=== PATIENT | male | born 1995 | race Caucasian/White ===

== ENCOUNTER 2021-06-08 23:21 | Emergency (ER) | payer BC ==
[~2021-06-08] VITALS: Ht 175.3 cm; Wt 70.3 kg
--- NOTE | 2021-06-08 23:23 | NUR ---
Patient to ER HALLWAY BED 1 to gown for evaluation. Side rails up.
--- NOTE | 2021-06-08 23:25 | NUR ---
ER MD ESCOBAR AT BEDSIDE EXAMINING PATIENT.
[2021-06-08] MEDS ORDERED: ONDANSETRON HCL 4 MG/2 ML VIAL IVP ONE (23:30)
[2021-06-08] MEDS ORDERED: LORazepam 2 MG/ML VIAL IVP ONE (23:30)
[2021-06-08] MEDS ORDERED: NACL 0.9% 1,000 ML IV ONE (23:30)
--- NOTE | 2021-06-08 23:30 | NUR ---
Pt BIB father due to palpitations and N&V s/p eating an edible "roughly" 3 hours prior to ED arrival. Pt denies any alcohol intake. Reports the edible was "too much" and felt sick so his father brought him in for eval. Pt appears in no acute distress. Breathing adequatly on RA. VSS at this time.
[2021-06-09 00:17] LABS: BASOPHILS % (AUTO) 0.3 % (0.0-2.0); EOSINOPHILS # (AUTO) 0.1 K/uL (0.0-0.4); HEMATOCRIT 42.2 % (36-54); HEMOGLOBIN 14.4 g/dL (14.0-18.0); LYMPHOCYTES # (AUTO) 4.4 K/uL (1.0-5.5); LYMPHOCYTES % (AUTO) 36.1 % (20.5-51.5); MEAN CORPUSCULAR HEMOGLOBIN 31 pg (27-31); MEAN CORPUSCULAR HGB CONC 34 % (32-36); MEAN CORPUSCULAR VOLUME 89 fL (79.0-98.0); MONOCYTES # (AUTO) 0.8 K/uL (0.0-1.0); MONOCYTES % (AUTO) 6.7 % (1.7-9.3); NEUTROPHILS # (AUTO) 6.8 K/uL (1.8-7.7); NEUTROPHILS % (AUTO) 55.9 % (40.0-70.0); PLATELET COUNT (AUTO) 216 K/uL (130-430); RED BLOOD CELL COUNT(AUTO) 4.72 MIL/uL (4.2-6.2); RED CELL DISTRIBUTION WIDTH 12.4 % (9.0-15.0); WHITE BLOOD COUNT (AUTO) 12.1 K/uL (4.8-10.8)
[2021-06-09 00:51] LABS: CALCIUM 8.7 mg/dL (8.4-11.0); CREATININE 0.97 mg/dL (0.55-1.30); POTASSIUM 3.4 mmol/L (3.5-5.1)
[2021-06-09 00:57] LABS: ALBUMIN 4.1 g/dL (3.4-4.8); TOTAL BILIRUBIN 0.3 mg/dL (0.0-1.0)
--- NOTE | 2021-06-09 01:09 | NUR ---
UA collected and sent to lab
[2021-06-09 01:13] LABS: ACETAMINOPHEN < 1 ug/mL (1-30); ALCOHOL, BLOOD < 3 mg/dL (<10)
[2021-06-09 01:29] LABS: BARBITURATE, URINE NEGATIVE (NEG <=200); BENZODIAZEPINE, URINE NEGATIVE (NEG <=150); CANNABINOID, URINE POSITIVE (NEG <=50); COCAINE, URINE NEGATIVE (NEG <=150); METHAMPHETAMINES SCREEN,URINE NEGATIVE (NEG <=500); OPIATE, URINE NEGATIVE (NEG <=100); PHENCYCLIDINE SCREEN,URINE NEGATIVE (NEG <=25); UR TRICYCLIC ANTIDEPRESSANTS NEGATIVE (NEG <=300); URINE AMPHETAMINE NEGATIVE (NEG <=500); URINE METHADONE NEGATIVE (NEG <=200); URINE OXYCODONE SCREEN NEGATIVE (NEG <=100); URINE PROPOXYPHENE SCREEN NEGATIVE (NEG <=300)
[2021-06-09] MEDS ORDERED: ONDA-8 TL (01:44)
[2021-06-09 02:20] VITALS: BP_SYST 117
--- NOTE | 2021-06-09 02:20 | NUR ---
Patient given written and verbal discharge instructions and verbalizes understanding. ER MD ESCOBAR discussed with patient the results and treatment provided. Patient in stable condition. ID arm band removed. IV catheter removed intact and dressing applied, no active bleeding. Rx of ZOFRAN given. Patient educated on pain management and to follow up with PMD. Pain Scale 0/10. Opportunity for questions provided and answered. Medication side effect fact sheet provided.
== END 2021-06-09 02:20 | disposition home or self-care (01) ==
LOC: SED 23:21
DX: F12.229 Cannabis dependence with intoxication, unspecified (principal); Z79.899 Other long term (current) drug therapy
CPT/HCPCS: 36415; 71045; 80053; 80307; 85025; 93005; 96361; 96374; 96375; 99285; G0480; G0481; G0482; J2060; J2405; J7030